=== PATIENT | male | born 1960 | race Caucasian/White ===

== ENCOUNTER → 2016-12-16 | Outpatient (CLI) | payer SELFPAY ==
[~2016-12-16] MED LIST: 'PARAFON FORTE500 M1 PO; ABILIFY5 MG PO; ASPIRIN ADULT L81 M2 PO; ATORVASTATIN CA40 M1 PO; BACTROBAN CREAM15 GM T; CARAFATE1 G1 PO; CLINDAMYCIN150 MG PO; FLUCONAZOLE100 MG PO; HIGH BP MED; LEVAQUIN750 M1 PO; LISINOPRIL40 MG PO; MAPAP325 MG PO; METFORMIN HCL1000 MG PO; MYCOLOG CREAM 115 GM T; NAPROSYN500 MG PO; PAROXETINE HCL40 MG PO; PERCOCET 325 MG1 TA2 PO; PROTONIX40 MG PO; REMERON15 M2 PO; SLOW MAG 110 MG64 MG PO; TRIGLYCERIDE MED; VALIUM10 MG PO; ZOLPIDEM TART10 MG PO; [UNRECOGNIZED DRUG - OTHER]
== END | disposition home or self-care (01) ==
LOC: RESCLI 02:31
DX: I10 Essential (primary) hypertension (principal); F51.01 Primary insomnia; F33.2 Major depressive disorder, recurrent severe without psychotic features; M54.31 Sciatica, right side; E11.65 Type 2 diabetes mellitus with hyperglycemia; E78.00 Pure hypercholesterolemia, unspecified; Z88.2 Allergy status to sulfonamides

== ENCOUNTER 2017-03-23 23:11 | Emergency (ER) | payer SELFPAY ==
[~2017-03-23] VITALS: Ht 187.9 cm; Wt 90.7 kg
[2017-03-24 04:14] LABS: BASO % 0.4 % (0.0-1.0); EOS # 0.2 10*3/uL (0.0-0.4); EOS % 2.6 % (1.0-4.0); HEMATOCRIT 41.6 % (42.0-52.0); IG # 0.2 10*3/uL (0.0-0.1); LYMPH # 2.3 10*3/uL (1.3-4.4); LYMPH % 32.9 % (27.0-41.0); MEAN CORPUSCULAR HGB 28.3 pg (27.0-31.0); MEAN CORPUSCULAR HGB CONC 33.7 g/dl (33.0-37.0); MEAN PLATELET VOLUME 9.5 fl (9.6-12.3); MONO # 0.7 10*3/uL (0.1-1.0); MONO % 9.8 % (3.0-9.0); NEUT # 3.6 10*3/uL (2.3-7.9); PLATELET COUNT AUTOMATED 253 10*3/uL (130-400); RED BLOOD COUNT 4.95 10*6/uL (4.50-5.90); RED CELL DISTRI WIDTH 14.3 % (0-14.5); WHITE BLOOD COUNT 6.9 10*3/uL (4.8-10.8)
[2017-03-24 04:32] LABS: ALKALINE PHOSPHATASE 104 U/L (45-117); BILIRUBIN, TOTAL 0.3 mg/dl (0.2-1.0); BUN 18 mg/dl (7-24); CARBON DIOXIDE 23 mmol/L (21-32); CHLORIDE 105 mmol/L (98-107); EST GLOM FILT AFRICAN AMERICAN > 60 ml/min; GLUCOSE 180 mg/dL (65-99); POTASSIUM 3.2 mmol/L (3.5-5.1); SGOT/AST 25 IU/L (3-35); SGPT/ALT 20 U/L (12-78); SODIUM 144 mmol/L (136-145); TOTAL PROTEIN 6.3 gm/dL (6.4-8.2)
== END 2017-03-24 11:08 | disposition home or self-care (01) ==
LOC: ED 23:11
PROVIDERS: Emergency Medicine Emergency Medical Services
DX: F10.120 Alcohol abuse with intoxication, uncomplicated (principal); S00.83XA Contusion of other part of head, initial encounter; E11.65 Type 2 diabetes mellitus with hyperglycemia; E78.00 Pure hypercholesterolemia, unspecified; K21.9 Gastro-esophageal reflux disease without esophagitis; F41.9 Anxiety disorder, unspecified; F32.9 Major depressive disorder, single episode, unspecified; Z88.1 Allergy status to other antibiotic agents; Z88.2 Allergy status to sulfonamides; Z79.899 Other long term (current) drug therapy; W18.30XA Fall on same level, unspecified, initial encounter; Y93.89 Activity, other specified; Y92.511 Restaurant or cafe as the place of occurrence of the external cause; Y99.9 Unspecified external cause status

== ENCOUNTER 2017-08-07 13:29 | Inpatient (IN) | payer SELFPAY ==
[~2017-08-07] VITALS: Ht 187.9 cm; Wt 91.4 kg
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
[2017-08-07 13:49] VITALS: BP 149/87
[2017-08-07 14:28] LABS: BASO % 0.5 % (0.0-1.0); EOS # 0.2 10*3/uL (0.0-0.4); HEMATOCRIT 45.4 % (42.0-52.0); LYMPH # 2.7 10*3/uL (1.3-4.4); LYMPH % 31.3 % (27.0-41.0); MEAN CORPUSCULAR HGB 28.7 pg (27.0-31.0); MEAN PLATELET VOLUME 10.1 fl (9.6-12.3); MONO # 0.5 10*3/uL (0.1-1.0); MONO % 6.2 % (3.0-9.0); NEUT # 5.1 10*3/uL (2.3-7.9); NEUT % 59.3 % (47.0-73.0); PLATELET COUNT AUTOMATED 303 10*3/uL (130-400); RED BLOOD COUNT 5.22 10*6/uL (4.50-5.90); RED CELL DISTRI WIDTH 13.8 % (0-14.5); WHITE BLOOD COUNT 8.5 10*3/uL (4.8-10.8)
[2017-08-07 14:40] LABS: ACT PARTIAL THROMBO TIME 26.2 SECONDS (20.8-31.5)
[2017-08-07 14:44] LABS: ALBUMIN 3.6 gm/dl (3.1-4.5); ALKALINE PHOSPHATASE 111 U/L (45-117); BUN 15 mg/dl (7-24); CHLORIDE 104 mmol/L (98-107); CKMB 1.1 ng/ml (0.5-3.6); CPK 44 U/L (39-308); CREATININE 1.04 mg/dL (0.70-1.30); LIPASE 229 U/L (73-393); MAGNESIUM 2.1 mg/dL (1.5-2.1); POTASSIUM 3.8 mmol/L (3.5-5.1); SGOT/AST 93 IU/L (3-35); SGPT/ALT 181 U/L (12-78); SODIUM 138 mmol/L (136-145); TOTAL PROTEIN 7.4 gm/dL (6.4-8.2)
[2017-08-07 14:46] LABS: TROPONIN I < 0.015 ng/ml (<0.045)
[2017-08-07 16:00] VITALS: BP 134/72
--- NOTE | 2017-08-07 16:22 | NUR ---
REPORT CALLED TO YESSICA PLASCENCIA AT THIS TIME.
[2017-08-07 16:24] VITALS: BP 124/70
[2017-08-07 16:30] VITALS: BP 124/70
--- NOTE | 2017-08-07 16:30 | NUR ---
A 57, admitted to , under the services of GLORIA Tracey DO with a diagnosis of INTRACTABLE BACK PAIN, UNSTEADY GAIT, NON-HEALING ULCER RIGHT FOOT, GENERAL WEAKNESS, ALTERED MENTAL STATUS. Chief complaint is BACK PAIN. Patient arrived via bed from ER. Monitor applied. Initial assessment completed. Vital signs taken and recorded. GLORIA TRACEY DO notified of admission to the unit. Orders received. See assessment for past medical history, medications and allergies. Patient and/or family oriented to unit. visitation policy reviewed. Clothing/patient valuable form completed. YESSICA ROBERTSON
--- NOTE | 2017-08-07 16:42 | NUR ---
PATIENT TAKEN TO FLOOR AT THSI TIME BY THIS NURSE AND NIGEL SCHWARTZ.
--- NOTE | 2017-08-07 17:00 | NUR ---
DR. DÍAZ NOTIFIED OF CRITICAL LACTIC ACID OF 2.3.
--- NOTE | 2017-08-07 19:22 | NUR ---
NOTIFIFED DR. SEYMOUR'S OFFICE AND DR. DWYER OF CONSULTS.
[2017-08-07 20:00] VITALS: BP 132/84
--- NOTE | 2017-08-07 20:20 | NUR ---
DR. WALLER NOTIFIED THAT PATIENT'S HOME MEDS WERE VEREFIED WITH PATIENT AND THAT MED REQ IS UP TO DATE.
[2017-08-07 22:49] LABS: BILIRUBIN NEGATIVE (NEGATIVE); BLOOD NEGATIVE (NEGATIVE); CLARITY CLEAR (CLEAR); COLOR YELLOW (YELLOW); GLUCOSE NEGATIVE (NEGATIVE); KETONE NEGATIVE (NEGATIVE); LEUKO ESTERASE NEGATIVE (NEGATIVE); NITRITE NEGATIVE (NEGATIVE); PH 5.5 (5.0-9.0); SPECIFIC GRAVITY 1.025 (1.005-1.030)
[2017-08-07 22:57] LABS: EPITHELIAL CELLS 0-2; RBC 0-2 rbc/hpf (0-2); WBC 0-2 wbc/hpf (0-5)
[2017-08-08] VITALS: BP 106/55
--- NOTE | 2017-08-08 00:40 | NUR ---
PATIENT MEDICATED WITH TORADOL IV AT 1802 AND 0006 FOR COMPLAINTS OF BACK PAIN AND ROZEREM AT 7 FOR COMPLAINTS OF INSOMNIA WITH EFFECTIVE RESULTS NOTED FOR ALL. RESTING IN BED WITH EYES CLOSED AT THIS TIME. NO SIGNS OR SYMPTOMS OF DISTRESS NOTED. CALL LIGHT IN REACH. WILL CONTINUE TO MONITOR.
--- NOTE | 2017-08-08 06:55 | NUR ---
PATIENT MEDICATED WITH TORADOL IV FOR COMPLAINTS OF BACK PAIN AT 0622 WITH EFFECTIVE RESULTS NOTED. RESTING IN BED WITH EYES CLOSED. WILL CONTINUE TO MONITOR. CALL LIGHT IN REACH.
[2017-08-08 07:06] LABS: BASO % 0.3 % (0.0-1.0); EOS # 0.2 10*3/uL (0.0-0.4); HEMATOCRIT 40.9 % (42.0-52.0); HEMOGLOBIN 13.2 g/dl (14.0-18.0); LYMPH # 2.3 10*3/uL (1.3-4.4); MEAN CELL VOLUME 88.9 fl (80.0-94.0); MEAN CORPUSCULAR HGB 28.7 pg (27.0-31.0); MEAN CORPUSCULAR HGB CONC 32.3 g/dl (33.0-37.0); MEAN PLATELET VOLUME 10.1 fl (9.6-12.3); MONO # 0.4 10*3/uL (0.1-1.0); MONO % 7.2 % (3.0-9.0); NEUT % 49.5 % (47.0-73.0); PLATELET COUNT AUTOMATED 261 10*3/uL (130-400); RED CELL DISTRI WIDTH 13.7 % (0-14.5)
[2017-08-08 07:35] LABS: CHLORIDE 107 mmol/L (98-107); POTASSIUM 4.2 mmol/L (3.5-5.1); SODIUM 140 mmol/L (136-145)
[2017-08-08 07:40] LABS: ACT PARTIAL THROMBO TIME 26.4 SECONDS (20.8-31.5); INTERNATIONAL NORM RATIO 0.9 (2.0-3.5)
[2017-08-08 07:46] LABS: ALBUMIN 3.1 gm/dl (3.1-4.5); ALKALINE PHOSPHATASE 109 U/L (45-117); BUN 20 mg/dl (7-24); CHOLESTEROL 129 mg/dL (<200); CREATININE 1.09 mg/dL (0.70-1.30); HDL CHOLESTEROL 32 mg/dl (40-60); LDL CHOLESTEROL 69 mg/dL (9-159); MAGNESIUM 2.3 mg/dL (1.5-2.1); PHOSPHOROUS 4.6 mg/dL (2.5-4.9); SGOT/AST 55 IU/L (3-35); SGPT/ALT 135 U/L (12-78); TOTAL PROTEIN 6.1 gm/dL (6.4-8.2); TRIGLYCERIDES 139 mg/dl (<150); VLDL CHOLESTEROL 28 mg/dL (6-40)
[2017-08-08 08:00] VITALS: BP 110/70; BP 87/49
--- NOTE | 2017-08-08 08:06 | NUR ---
Shift chart check completed.
[2017-08-08 08:08] LABS: VITAMIN D, 25-HYDROXY 20.9 ng/mL (30-100)
--- NOTE | 2017-08-08 09:22 | NUR ---
Patient sitting at side of the bed eating breakfast when this nurse went in to assess wounds. Patient asked that they not be unwrapped again since they were already unwrapped three different times for pictures and assessment by other nurse. This patient is a patient of the wound care center and was seen 08-05-17. Patient states that her legs "look better, even from Thursday" at wound care center. Patient states she has been faithfully going to [facility] two times a week for lymphedema management. Patient stated she wanted to keep the current wound care, she feels her wounds are improving well. Patient denied pain at time of assessment. Pedal pulses present. Edema noted to bilateral lower extremeties. This nurse encouraged patient to elevate legs to try to decress edema. Patient asked that Dr. Bailon be consulted.
--- NOTE | 2017-08-08 09:36 | NUR ---
SARAH PEDROERNIE [id number] Please refer to the physician's history and physical for past medical history, comorbid conditions, and allergies. Diagnosis: INTRACTABLE BACK PAIN UNSTEADY GAIT NON-HEALING Peter Score: 20,LOW OR NO RISK WOUND DESCRIPTIONS: Location of the wound: Right 2nd toe Type of wound: full thickness Thickness: Size: 1cm x 1cm x 0.1cm Tunneling: none Undermining: none Sinus Tract: none Presence of Exudate: Serous Amount: Light Color: Yellow, Brown Odor: None Periwound Skin Appearance: Erythema Wound edges: approximated Pain (associated with wound): Patient states he cannot feel anything on his feet How does patient state this happened? patient states he is unsure how this happened but has had the area for about 3 months If wound is on legs/feet or hands, capillary refill time, pulses, color temp, sensation: Capillary refill <3 seconds. Pedal pulses present. Right 2nd toe warm to touch Location of the wound: Posterior right ankle Type of wound: full thickness Size: 0.8cm x 0.5cm x 0.1cm Tunneling: none Undermining: none Sinus Tract: none Presence of Exudate: none Amount: None Color: Brown Odor: None Periwound Skin Appearance: Erythema Wound edges: approximated Pain (associated with wound): patient states he cannot feel anything in his feet How does patient state this happened? patient is unsure how this happened Patient is missing nail on left great toe. Patient states he lost the nail "weeks ago". Patient denies pain or discomfort to this area. No odor, drainage or erythema noted to this area. Surface the patient is resting on: Position Pro SKIN PREVENTION RECOMMENDATION: 1. Pressure redistribution support surface as appropriate 2. Elevate heels 3. Remove boots/TEDS every shift and reapply 4. Head of bed 30 degrees as tolerated 5. Assess nutrition and hydration 6. Manage moisture 7. Avoid the use of containment devices while in bed 8. Use absorptive products on surfaces limit layers of linens on bed 9. Turn and reposition every 1-2 hours in bed and every 1 hour in chair as tolerated 10. Weight shifts every 15 minutes while up in chair 11. Offloading with pillows or device to keep heels elevated off bed 12. Monitor skin at least every shift 13. Inspect under medical devices twice a day WOUND TREATMENT RECOMMENDATIONS: Right 2nd toe NSS, sureprep, therahar, drygauze. Bacvk of right ankle NSS, eliudprep, dami, optifoam gentle. Consult podiatry
--- NOTE | 2017-08-08 11:05 | NUR ---
[facility] CALLED ABOUT MED LIST - THEY SAID HE HAS NOT HAD ANY MEDICATIONS FILLED SINCE OCTOBER 2016. AGAIN ASKED THE PATIENT IF HE HAS PRESCRIPTIONS FILLED AT ANY OTHER PHARMACY AND HE REPLIED "NO". ASKED IF HE TAKES ANY MEDICATIONS DAILY AND HE AGAIN RESPONDED "NO"
--- NOTE | 2017-08-08 11:15 | NUR ---
DR TONEY NOTIFIED OF MED REC BEING UPDATED, NO MEDS FILLED SINCE OCTOBER 2016 & PATIENT SAYING HE DOESN'T TAKE ANY MEDICATIONS
--- NOTE | 2017-08-08 11:27 | NUR ---
PATIENT AGAIN ASKED WHEN HE WAS GOING TO THE BATHROOM FOR A URINE SAMPLE AND HE TOLD THE AIDE "YOU CAN SHOVE THE SAMPLE, YOU AREN'T GETTING IT."
[2017-08-08 12:00] VITALS: BP 128/54
--- NOTE | 2017-08-08 12:17 | NUR ---
TORADOL GIVEN FOR C/O BACK PAIN. PT NOW SAYS HE TAKES METFORMIN AND GETS IT FILLED AT [facility] - RN TOLD HIM THAT SHE CALLED [facility] & THAT IT HAD NOT BEEN FILLED SINCE OCT 2016. PT JUST LOOKED AT THE NURSE - PT DID GIVE URINE SAMPLE AFTER TELLING THE AIDE THAT SHE COULD SHOVE IT. WHEN ASKED WHY HE CHANGED HIS MIND HE SAID " I WAS JUST KIDDING" - RN SAID YES WE LIKE TO JOKE BUT THOSE WORDS ARE NOT JOKING. SAMPLE SENT TO LAB - DR DÍAZ IS ON THE FLOOR MAKING ROUNDS - CASE HAS BEEN DISCUSSED AND HE WAS TOLD THAT THE PATIENT WAS EXPECTD TO ASK FOR SOMETHING STRONGER
[2017-08-08 12:40] LABS: URINE AMPHETAMINES < 1000 (1000ng/ml); URINE BARBITURATES < 200 (200ng/ml); URINE BENZODIAZEPINES > 200 (200ng/ml); URINE CANNABINOIDS (THC) < 50 (50ng/ml); URINE COCAINE < 300 (300ng/ml); URINE METHADONE < 300 (300ng/ml); URINE OPIATES > 300 (300ng/ml)
[2017-08-08 12:44] LABS: URINE PHENCYCLIDINE < 25 (25ng/ml)
--- NOTE | 2017-08-08 14:01 | NUR ---
SLEEPING AGAIN ON HIS SIDE. EARLIER FLEXERTIL WAS EFFECTIVE FOR LEG CRAMPS
[2017-08-08 16:00] VITALS: BP 137/70
--- NOTE | 2017-08-08 16:30 | NUR ---
PT C/O LOWER BACK/RT FOOT PAIN. PT ADVISED THAT NO PRN'S ARE AVAILABLE AT THIS TIME. PT RESTING QUIETLY IN BED WITH EYES CLOSED.
[2017-08-08 20:00] VITALS: BP 129/72
--- NOTE | 2017-08-08 21:25 | NUR ---
PT RESTING QUIETLY IN BED WITH EYES CLOSED. NO FURHTER S/S OF DISTRESS NOTED.
--- NOTE | 2017-08-08 21:59 | NUR ---
OPTIFOAM REPLACED TO RIGHT POSTERIOR ANKLE D/T OLD DRSG WAS COMING OFF. PT TOLERATED DRSG CHANGE WELL.
[2017-08-09] VITALS: BP 132/56
--- NOTE | 2017-08-09 00:10 | NUR ---
REQUSETING PAIN MED. TOO EARLY FOR TOREDOL. FLEXERIL PO FOR C/O'S PAIN R LEG. HP LOCK INTACT. NO DISTRESS NOTED.
--- NOTE | 2017-08-09 00:39 | NUR ---
DRSG INTACT X;S 2 R GREAT TOE AND R ANKLE. NO VISIBLE DRNG NOTED.
--- NOTE | 2017-08-09 01:45 | NUR ---
0134 MEDICATED WITH TOREDOL IV FOR CONT C/O'S BACK PAIN AND PAIN R FOOT. WILL MONITOR.
--- NOTE | 2017-08-09 02:08 | NUR ---
EARLIER PAIN MED EFFECTIVE.
--- NOTE | 2017-08-09 04:04 | NUR ---
RESTING IN BED WITH EYES CLOSED. APPEARS TO BE SLEEPING.
--- NOTE | 2017-08-09 04:22 | NUR ---
0145 LATE ENTRY MILK OF MAGNESIA GIVEN PER REQUEST FOR CONSTIPATION.
--- NOTE | 2017-08-09 06:04 | NUR ---
SLEPT WELL THIS SHIFT. NO FURTHER C/O'S VOICED.
[2017-08-09 06:51] LABS: BASO % 0.5 % (0.0-1.0); EOS # 0.2 10*3/uL (0.0-0.4); EOS % 3.6 % (1.0-4.0); HEMATOCRIT 37.6 % (42.0-52.0); HEMOGLOBIN 12.6 g/dl (14.0-18.0); LYMPH # 2.4 10*3/uL (1.3-4.4); LYMPH % 39.6 % (27.0-41.0); MEAN CELL VOLUME 86.2 fl (80.0-94.0); MEAN CORPUSCULAR HGB 28.9 pg (27.0-31.0); MEAN CORPUSCULAR HGB CONC 33.5 g/dl (33.0-37.0); MEAN PLATELET VOLUME 9.9 fl (9.6-12.3); MONO # 0.4 10*3/uL (0.1-1.0); MONO % 6.7 % (3.0-9.0); NEUT % 49.1 % (47.0-73.0); PLATELET COUNT AUTOMATED 232 10*3/uL (130-400); RED BLOOD COUNT 4.36 10*6/uL (4.50-5.90); RED CELL DISTRI WIDTH 13.5 % (0-14.5); WHITE BLOOD COUNT 6.1 10*3/uL (4.8-10.8)
[2017-08-09 07:06] LABS: ALKALINE PHOSPHATASE 82 U/L (45-117); BUN 15 mg/dl (7-24); CHLORIDE 108 mmol/L (98-107); CREATININE 0.93 mg/dL (0.70-1.30); POTASSIUM 3.8 mmol/L (3.5-5.1); SGOT/AST 41 IU/L (3-35); SGPT/ALT 105 U/L (12-78); SODIUM 140 mmol/L (136-145); TOTAL PROTEIN 5.9 gm/dL (6.4-8.2)
--- NOTE | 2017-08-09 07:43 | NUR ---
Shift chart check completed.
[2017-08-09 08:00] VITALS: BP 134/74
--- NOTE | 2017-08-09 08:33 | NUR ---
PATIENT MEDICATED WITH IVP TORADOL FOR PAIN 8/10 IN HIS RIGHT HIP RADIATING DOWN HIS RIGHT LEG. PATIENT STATES MEDICATION DOES NOT WORK WELL.
--- NOTE | 2017-08-09 09:33 | NUR ---
PATIENT STATES MEDICATION NOT REALLY EFFECTIVE. DR TONEY AWARE THAT PATIENT ONLY HAS TORADOL ORDERED.
[2017-08-09 11:43] VITALS: BP 140/68
[2017-08-09] MEDS ORDERED: Zestril,Prinivi40 MG PO (12:33)
[2017-08-09] MEDS ORDERED: PANTOPRAZOLE SO40 MG PO (12:33)
[2017-08-09] MEDS ORDERED: CYCLOBENZAPRINE10 MG PO (12:33)
[2017-08-09] MEDS ORDERED: ROZEREM8 MG PO (12:33)
[2017-08-09] MEDS ORDERED: Vitamin D PO (12:33)
[2017-08-09] MEDS ORDERED: DULOXETINE HCL30 MG PO (12:33)
[2017-08-09] MEDS ORDERED: DULOXETINE HCL60 MG PO (12:33)
[2017-08-09] MEDS ORDERED: GABAPENTIN100 M2 PO (12:33)
[2017-08-09] MEDS ORDERED: Insulin Lispro, Reco SC (12:33)
[2017-08-09] MEDS ORDERED: NAPROXEN500 MG PO (12:35)
--- NOTE | 2017-08-09 14:00 | NUR ---
PATIENT REFUSED D/C PHOTOS OF WOUNDS. HE STATED THEY WERE JUST CHANGED THIS MORNING AND HIS HIP AND LEG ARE HURTING.
--- NOTE | 2017-08-09 14:10 | NUR ---
PATIENT MEDICATED WITH PO FLEXERILL AND IVP TORADOL FOR PAIN IN HIS RT HIP AND RADIATING DOWN HIS RIGHT LEG RATED 7/10
--- NOTE | 2017-08-09 14:27 | NUR ---
CALLED REPORT TO [facility] TO SUSY.
[2017-08-09 17:05] LABS: HEPATITIS B SURFACE AG Negative (Negative); HEPATITIS C VIRUS ANTIBODY <0.1 s/co (0.0-0.9)
== END 2017-08-09 14:22 | disposition home health service (06) | DRG 638 ==
LOC: ED 13:29 → EDHOLD 15:21 → 4E 15:44
PROVIDERS: Emergency Medicine; Family Medicine; Internal Medicine; ADMIT Internal Medicine
DX: E11.621 Type 2 diabetes mellitus with foot ulcer (principal); F33.2 Major depressive disorder, recurrent severe without psychotic features; L97.519 Non-pressure chronic ulcer of other part of right foot with unspecified severity; E11.40 Type 2 diabetes mellitus with diabetic neuropathy, unspecified; E11.65 Type 2 diabetes mellitus with hyperglycemia; M54.9 Dorsalgia, unspecified; R74.0 Nonspecific elevation of levels of transaminase and lactic acid dehydrogenase [LDH]; I10 Essential (primary) hypertension; E78.00 Pure hypercholesterolemia, unspecified; K21.9 Gastro-esophageal reflux disease without esophagitis; J30.2 Other seasonal allergic rhinitis; F41.1 Generalized anxiety disorder; E55.9 Vitamin D deficiency, unspecified; F34.1 Dysthymic disorder; E78.5 Hyperlipidemia, unspecified; Z88.2 Allergy status to sulfonamides; Z88.8 Allergy status to other drugs, medicaments and biological substances; Z87.01 Personal history of pneumonia (recurrent); Z72.89 Other problems related to lifestyle; Z82.49 Family history of ischemic heart disease and other diseases of the circulatory system; Z83.3 Family history of diabetes mellitus; Z79.2 Long term (current) use of antibiotics; Z79.84 Long term (current) use of oral hypoglycemic drugs; Z79.899 Other long term (current) drug therapy

== ENCOUNTER 2017-08-09 14:26 | Inpatient (IN) | payer SELFPAY ==
[~2017-08-09] VITALS: Ht 187.9 cm; Wt 93.3 kg
--- NOTE | ~2017-08-09 | CON ---
[place], [place] REPORT OF CONSULTATION NAME: [facility] SMITH [id number] UNIT #: [id number] ROOM: 312 DOCTOR: YARELIS JEAN ED.D (JUANIS) BIRTHDATE: [birth year] DOS: 08/17/2017 HISTORY OF PRESENT ILLNESS: The patient is a 57-year-old male referred by Dr. Dwyer for psychological evaluation. At the present time, this patient is on the [facility] at [facility]. He states he is and has one son, although he does not have much contact with his son. His mother is still living and is in her late 80s. He has several siblings; however, his one sister is suffering from liver cancer, and his 1 brother he has very little contact with at this time. This patient does not have a family physician, but his medical history is pertinent for hypertension, GERD, hyperlipidemia, diabetes mellitus, major depressive disorder, recurrent. His medications at this time include Paxil, Remeron, Abilify, Neurontin, Seroquel, and Zofran. He denies any significant substance abuse issues. This patient was awake, alert and oriented in all 3 spheres and denies any suicidal ideation or plan. He states he has been quite depressed, especially since his recent divorce in 02/2017. He does agree that he needs to follow up with outpatient psychotherapy and he will follow up in the office with me or with my colleague. DIAGNOSIS: Major depressive disorder, recurrent. RECOMMENDATIONS: The patient should continue medications as prescribed. The patient should follow up with outpatient psychotherapy once he is discharged. Thank you very much for this consult. YARELIS JEAN ED.D CM:CONSTR:REPORT OF CONSULTATION 1707 08/18/17 0049 interface BARB DWYER MD
--- NOTE | ~2017-08-09 | CON ---
[place], [place] REPORT OF CONSULTATION NAME: [facility]ITH [id number] UN[facility] #: [id number] ROOM: 312 DOCTOR: AIDA CALDERÓN DPM BIRTHDATE: [birth year] DOS: 08/10/2017 HISTORY OF PRESENT ILLNESS: This patient is seen today and is consulted for evaluation of a wound on his right foot. The patient states he has been diabetic for several years. He is unsure how his blood sugars do at this time. He states the wound has been there for a while. He was recently hospitalized and had a CT scan of the foot. He states he does experience some mild pain in the feet. He also states he experiences cramping in his legs when he walks that forces him to sit down. He gets pain in bed at night as well in his legs. PAST MEDICAL HISTORY: Positive for hypertension, gastroesophageal reflux disease, hyperlipidemia, diabetes, seasonal allergies as well as depression. ALLERGIES: BACTRIM AND SULFA. CURRENT MEDICATIONS: Include Seroquel, Zanaflex, Cymbalta, Protonix, Neurontin, Zostrix, Ativan, Flexeril. OBJECTIVE: Lower extremity physical examination, pedal pulses are decreased bilaterally. There is sparse hair growth noted on the feet. Skin temperature is cool at the toes. CFT is 2 seconds to all digits. Mild dependent edema is seen bilaterally. Negative Homans sign is seen. Sensation appears decreased but in the forefoot bilaterally. No paresthesias are seen. Muscle strength does appear full without any deficits. On the right posterior heel, right plantar forefoot, there is small area of discoloration, but no real open wounds in those areas. No signs of infection. He has an open wound noted at the dorsal PIPJ of the right second toe that measures about almost a cm in diameter. No bone is visible or palpable. There is no surrounding edema or erythema. No drainage or malodor. No signs of infection or abscess. He had a CT scan of his foot done, which showed no signs of osteomyelitis. IMPRESSION: Diabetes mellitus with diabetic ulcer, right second toe, possible peripheral arterial disease. PLAN: Consult is performed. Recommend Bactroban and dressing daily to the wound on his right foot to offload the area. I will order an arterial Doppler study to evaluate for underlying PAD. If it does show occlusion, recommend vascular consult but we will await to see what the test shows first. We will continue to follow while in the hospital. Thank you for the opportunity to take part in care of this patient. [place], [place] REPORT OF CONSULTATION NAME: ERNIE SMITH III UNIT #: [id number] ROOM: [facility] DOCTOR: AIDA CALDERÓN DPM BIRTHDATE: [birth year] AIDA CALDERÓN DPM CM:CONSTR:REPORT OF CONSULTATION 1154 08/10/17 1257 interface
--- NOTE | ~2017-08-09 | PR ---
[place], [place] PROGRESS NOTE NAME: ERNIE SMITH III [facility] #: [id number] UNIT #: [id number] ROOM: 312 DOCTOR: AIDA CALDERÓN DPM BIRTHDATE: [birth year] DOS: 08/17/2017 SUBJECTIVE: This patient is seen today for followup of an ulceration on his right second toe. He denies any pain in the toe at this time. OBJECTIVE: Neurovascular status is unchanged. There is some rubor noted to the toes at this time. The dorsal PIPJ of the right second toe shows ulceration which is decreased in size and depth. It appears to be smaller by about 50%. There is some erythema about the toe, but there is no infection noted. No purulent drainage or malodor. I believe the erythema is from dependent rubor and related to his circulation. The wound does look clean and is healing without any complication at this time. ASSESSMENT: Healing ulcer, right second toe. PLAN: Evaluation and management. Continue with wound care to the area with Bactroban and a light dressing. Continue to offload the area. The wound is improving nicely at this time. Reevaluate at a later date for continued followup. AIDA CALDERÓN DPM CM:ILENE [phone] AIDA CALDERÓN DPM 08/17/17 2346 interface
--- NOTE | ~2017-08-09 | PR ---
[place], [place] PROGRESS NOTE NAME: [facility]IE SMITH [id number] UN[facility] #: [id number] ROOM: 312 DOCTOR: BARB DWYER MD BIRTHDATE: [birth year] DOS: 08/18/2017 CHIEF COMPLAINT: "I actually slept better, I think I am feeling a little better." SUMMARY OF THE VISIT: The patient was interviewed as he sat down to eat breakfast. He engaged readily in conversation. He did report that he is feeling better and he slept better. He relates some of this to receiving Toradol injection last night, but also feels that the adjustments that I made with his medicines last evening also improved his overall stability. He convincingly denies any side effects. I did talk to him today about finalizing discharge plans and proceeding tomorrow with discharge and he nodded in approval. MENTAL STATUS: He is alert and oriented to person, place and time. Mood does seem to be trending towards euthymia. Affect is much more appropriate. There are no suicidal, homicidal, or self-injurious thoughts. There is no hypomania or chris. There are no psychotic symptoms. Memory is intact. PLAN: I will continue to titrate the Neurontin upward moving from 600 mg 3 times a day to 800 mg 3 times a day. I will simultaneously increase the Seroquel from 200 mg at bedtime to 300 mg at bedtime to maximize mood stability properties. We will continue to engage in individual and chung milieu activity with the ultimate plan to discharge home when psychiatrically stable. BARB DWYER MD CM:PNTRANS 0816 1137 BARB DWYER MD 08/18/17 1137 interface
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
--- NOTE | ~2017-08-09 | PR ---
[place], [place] PROGRESS NOTE [id number] #: [id number] ROOM: 312 DOCTOR: BARB DWYER MD BIRTHDATE: [birth year] DOS: 08/17/2017 CHIEF COMPLAINT: "I'm no better, I'm so depressed and in so much pain." SUMMARY OF THE VISIT: The patient was interviewed in the quiet room. He engaged readily in conversation and stated that he feels very much depressed and is overwhelmed by multiple stressors. He notes that he is still in a lot of pain and is upset with the hospitalist for not meeting those needs. He reports his sleep is disturbed with difficulty falling asleep, sleep continuity disturbance and internal grinder awakening. He also endorses anergia, anhedonia, hopeless, helpless feelings. He does state that he is willing to engage in counseling and would like to be able to start that here. He is willing to allow me to adjust his medicines accordingly. He denies any side effects from the medicines. MENTAL STATUS: He is alert and oriented. Mood does seem to be depressed with some anxious overtones. There are no symptoms of hypomania or chris. There are no overt auditory or visual hallucinations, delusions or paranoia. Short, intermediate, and long-term memory are intact. PLAN: I will increase his Neurontin to 600 mg 3 times a day while simultaneously increasing Seroquel from 100 to 200 mg at bedtime. This should aid sleep and should also augment the effectiveness of the antidepressant regimen. I will order him Zostrix high potency cream to be a non-medication treatment for his chronic pain. I will also have them consult Dr. Shamar Delgado, psychologist, to engage in counseling services now. We will continue to engage in individual and chung milieu activity with the ultimate plan to return home when psychiatrically stable. BARB DWYER MD CM:PNTRANS [id number] BARB DWYER MD 08/17/17 1234 interface
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
[~2017-08-09 14:26] MED LIST changes: +CYCLOBENZAPRINE10 MG PO; +DULOXETINE HCL30 MG PO; +DULOXETINE HCL60 MG PO; +GABAPENTIN100 M2 PO; +Insulin Lispro, Reco SC; +NAPROXEN500 MG PO; +PANTOPRAZOLE SO40 MG PO; +ROZEREM8 MG PO; +Vitamin D PO; +Zestril,Prinivi40 MG PO
[2017-08-09 14:46] VITALS: BP 147/86
--- NOTE | 2017-08-09 15:01 | NUR ---
DR. DÍAZ MADE AWARE OF CONSULT FOR MEDICAL MANAGMENT WHILE ON THE UNIT.
--- NOTE | 2017-08-09 15:35 | NUR ---
PT ADMITTED TO [facility] AT 1426 AFTER BEING TREATED ON THE MEDICAL UNIT IN THE HOSPITAL. PT SIGNED A VOLUNTARY CONSENT FORM FOR PSYCHIATRIC TREATMENT. HE REPORTEDLY CAME TO THE ER WITH COMPLAINTS OF PAIN IN HIS BACK, TEETH AND BILATERAL LEGS. IT WAS ALSO NOTED THAT PATIENT HAS HAD A CHANGE IN MENTAL STATUS. HE WAS TREATED ON THE MEDICAL UNIT TO RULE OUT ORGANIC CAUSES OF SIGNS AND SYMPTOMS. DR. DWYER ADMITTED PATIENT TO THE [facility] UNIT WITH A DIAGNOSIS OF MAJOR DEPRESSION RECURRENT, SEVERE AND GAVE VERBAL ORDERS VIA TELEPHONE FOR ADMISSION MEDICATIONS AND TREATMENTS. ON ARRIVAL, PT'S BEHAVIOR HAS BEEN CALM AND COOPERATIVE. PT HAS BEEN ORIENTED TO THE UNIT AND IS CURRENTLY WITH SUSY (RN) COMPLETING ADMISSION ASSESSMENT.
--- NOTE | 2017-08-09 18:41 | NUR ---
ERNIE SMITH III Leticia a 57 year old M admitted via wheel chair from the OTHER as a voluntary admission. Arrived on unit at 1450. ALLERGIES: SULFA, SEPTRA,TRIMETHOPRIM Vital signs are: [phone]/86. The client signed the following forms with stated understanding: Authorization For The Release of Medical Information, Clothing List, Consent to Voluntary Admission and Hospitalization, Consent and Release Forms/Receipt of Rights, Acknowledgement of Advance Directive Information, Behavioral Health Consent Form, and Informed Consent of Medications. Admitted under the services of Dr. REYMUNDO BRUSH,[facility]. A search was conducted and hazardous articles were removed. Client was oriented to the unit. SUSY CANSECO
--- NOTE | 2017-08-09 18:47 | NUR ---
MMSE completed upon admission.
--- NOTE | 2017-08-09 18:59 | NUR ---
Reddy is cooperative with admitting process. Dr. Lowry was notified of need to obtain a wound care consult on this date @ this time.
[2017-08-09 20:00] VITALS: BP 122/73
--- NOTE | 2017-08-09 20:25 | NUR ---
C/O RIGHT HIP PAINB 07/09. MEDICATED WITH NAPROSYN PER ORDERS. REFUSED 1:1. REFUSED SNACK. WILL MONITOR
--- NOTE | 2017-08-09 20:46 | NUR ---
DC'D IV HEPLOCK FROM RIGHT HAND. PRESSURE DRESSING APPLIED
--- NOTE | 2017-08-09 21:07 | NUR ---
MEDICATION EFFECTIVE. ASKED IF NAPROSYN EFFECTIVE FOR PAIN AND HE REPLIED "I DON'T REALLY KNOW I HAVE BEEN SLEEPING." WILL MONITOR
--- NOTE | 2017-08-10 00:06 | NUR ---
P#1--DEPRESSION RELATED TO HOME,LEGAL, FAMILY ISSUES I- TEACH NEW COPING TECHNIQUES, DISCUSS IMPORTANCE OF ABSTAINING FROM DRUGH, DISCUSS DEVELOPING HEALTHY OUTSIDE FRIENDS, ENCOURAGE TO VERBALIZE WORRIES AND NEEDS P- NO DRUG USE. IMPRPOVED MENTAL HEALTH. USE OF NEW COPING TECHNIQUES
--- NOTE | 2017-08-10 02:10 | NUR ---
FLEXERIL GIVEN FOR C/O BACK SPASMS
--- NOTE | 2017-08-10 04:05 | NUR ---
APPEARS FLEXERIL EFFECTIVE. EYES CLOSED RESP EASY NON LABORED. MOVES SELF IN BED WITHOUT DIFFICULTY. 24 HR chart check completed.
[2017-08-10 07:50] VITALS: BP 142/86
--- NOTE | 2017-08-10 08:48 | NUR ---
STAISH GARCIANP ON UNIT TO ASSESS PT.
--- NOTE | 2017-08-10 10:53 | NUR ---
SENT OVER FACE STEET TO ANKLE AND FOOT: VADIM UP TO SEE PATIENT: PT C/O PAIN IN LEFT HEEL
--- NOTE | 2017-08-10 12:39 | NUR ---
SARAH PEDROERNIE Kelly [id number] Please refer to the physician's history and physical for past medical history, comorbid conditions, and allergies. Diagnosis: MAJOR DEPRESSION SEVERE Peter Score: 21,LOW OR NO RISK WOUND DESCRIPTIONS: Location of the wound: left great toe Type of wound: stage 2 Thickness: Partial Size: 0.5cm x 0.5cm x 0.1cm Tunneling: none Undermining: none Sinus Tract: none Presence of Exudate: none Amount: None Color: Red Odor: None Periwound Skin Appearance: Normal Wound edges: approximated Pain (associated with wound): none at time of assessment How does patient state this happened? pt stated toenail fell off toe and these areas have been there for four months. Location of the wound: right heel Type of wound: stage 2 Thickness: Partial Size: 0.4cm x 0.3cm x 0.1cm Tunneling: none Undermining: none Sinus Tract: none Presence of Exudate: serosanguineous Amount: Light Color: Red Odor: None Periwound Skin Appearance: Normal Wound edges: approximated Pain (associated with wound): none at time of assessment How does patient state this happened? pt stated these areas have been there for four months. Location of the wound: right 2nd toe Type of wound: stage 4 Thickness: Full Size: 0.9cm x 0.9cm x 0.2cm Tunneling: none Undermining: none Sinus Tract: none Presence of Exudate: serosanguineous Amount: Light Color: Yellow Odor: None Periwound Skin Appearance: Normal Wound edges: approximated Pain (associated with wound): none at time of assessment How does patient state this happened? pt stated these areas have been there for four months. Location of the wound: right side of 2nd toe proximal Type of wound: unstageable Size: 0.3cm x 0.1cm x <0.1cm Tunneling: none Undermining: none Sinus Tract: none Presence of Exudate: none Amount: None Color: Brown Odor: None Periwound Skin Appearance: Normal Wound edges: closed Pain (associated with wound): none at time of assessment How does patient state this happened? pt stated these areas have been there for four months. Location of the wound: right side of left 2nd toe distal Type of wound: unstageable Size: 0.3cm x 0.1cm x <0.1cm Tunneling: none Undermining: none Sinus Tract: none Presence of Exudate: none Amount: None Color: Brown Odor: None Periwound Skin Appearance: Normal Wound edges: closed Pain (associated with wound): none at time of assessment How does patient state this happened? pt stated these areas have been there for four months. Patients Bilateral feet very cool to the touch. Pt pedal are very faint in bilateral feet more so in the right foot Surface the patient is resting on: Proform SKIN PREVENTION RECOMMENDATION: 1. Pressure redistribution support surface as appropriate 2. Elevate heels 3. Remove boots/TEDS every shift and reapply 4. Head of bed 30 degrees as tolerated 5. Assess nutrition and hydration 6. Manage moisture 7. Avoid the use of containment devices while in bed 8. Use absorptive products on surfaces limit layers of linens on bed 9. Turn and reposition every 1-2 hours in bed and every 1 hour in chair as tolerated 10. Weight shifts every 15 minutes while up in chair 11. Offloading with pillows or device to keep heels elevated off bed 12. Monitor skin at least every shift 13. Inspect under medical devices twice a day WOUND TREATMENT RECOMMENDATIONS: Consult podiatry.
--- NOTE | 2017-08-10 13:15 | NUR ---
THIS NURSE TALKED TO THE PATIENT AND COUSIN : DISCUSSION INCLUDED MEDICATIONS, SIDE AND EFFECTS AND INDICATINOS, ALSO WENT OVER LABS, AND TEST THAT WERE PREFOMRED. PT WAS ENCOURAGED TO PARICIPATE IN GROUPS, THIS NURSE WENT OVER ALL THE RULES OF THE UNIT. WENT OVER THE GROUP AND ACTIVITIES THAT ARE RECOMMENDED TO PARTICAPTE IN. THE PT WANTS INFORMATION ON APPLYING FOR INSURANCE AND FOODSTAMPS. THE FAMILY WANTS TO APPLY FOR DISABILITY.
--- NOTE | 2017-08-10 13:20 | NUR ---
Exercise/Trivia Sujey did attend group and did participate. Group started out as Execise/Trivia but soon became a discussion. Noryt stated he has no leisure interest or ways to eleviate stress. Patient also states hes in constant pain. AT asked patient if he had any leisure interest before his life became all work. Patient stated no the only interest he had was playing chess. AT tried to discuss ways to deal with stress and anxiety. Noryt was very negative and questioned everything AT suggested. Sujey also stated he saw no reason to have a group and he wants his "tablet" back so he could listen to the bible. AT attempted to explain the reason sometings are not aloud but PT didnt agree with the explaination. AT also stated she would find a bible for patient to read but patient refused
--- NOTE | 2017-08-10 16:46 | NUR ---
PT EXCORTED BY CHUCKAR BY SECURITY AND JORGE TO RADIOLOGY FOR UNLTRASOUND OF LOWER EXTREMITIES
--- NOTE | 2017-08-10 17:07 | NUR ---
THIS NURSE WAS PASSING A TRAY TO ERNIE, ERNIE WAS STATING HE IS IN #10 PAIN IN HIS LOWER BACK AND NEEDED TO LAY ON THE FLOOR IN THE DINING ROOM TO STRETCH HIS BODY OUT. THIS NURSE SUGGESTED THAT IT WASN'T THE MOST APPORPORATE PLACE TO LAY DOWN AND LETS GO TO HIS ROOM, PT REFUSED WANTED TO LAY THERE FOR A MINUTE TO JUST STRETCH. PT GOT HIMSELF UP OFF THE FLOOR AND SAT DOWN TO EAT DINNER.
--- NOTE | 2017-08-10 17:10 | NUR ---
ALERT TO PERSON, PLACE, TIME , POOR TO SITUATION, PT IS MED SEEKING, ATTENTION SEEKING, POOR JUDGEMENT, C/O BACK PAIN #10, PT OFFERED TYLENOL PT REFUSED. PT ASKING FOR A DECONGESTANT, DR BALDWIN NASAL SPRAY, PT REFUSED, DENIES SI/HI, DENIES ALL PSYCHOSIS, PT IS DEPRESSED, ANXIOUS. EATING AND DRINKING ADEQUATELY. BS HAVE BEEN STABLE.
--- NOTE | 2017-08-10 17:14 | NUR ---
24 HR chart check completed.
[2017-08-10 19:04] VITALS: BP 109/65
--- NOTE | 2017-08-10 21:32 | NUR ---
COMPLAINS OF CONSTIPATION FOR 2 DAYS. MOM PROVIDED AT CLIENTS REQUEST
--- NOTE | 2017-08-10 21:49 | NUR ---
COMPLAINS OF NASAL STUFFINESS. REFUSES SALINE SPRAY ORDERED. STATES "I WANT A REAL DECONGESTANT". TOLD HIM TO TALK TO MEDICAL DOCTORS IN THE MORNING. P#1--DEPRESSION I- CONTINUE TO TEACH COPING TECHNIQUES. CONTINUE GETTING HIM INVOLVED IN SOCIAL INTERACTION. MEDICATION COMPLIANCE AND DECREASE NEED FOR NARCOTICS. P- DECREASED DEPRESSION. LOWER IS NEED FOR NARCOTICS
--- NOTE | 2017-08-11 06:14 | NUR ---
NO RESULTS FROM MOM AT THIS TIME. WILL MONITOR. SLEPT WELL ALL SHIFT. AWAKENED EARLIER FOR LAB WORK BUT WENT BACK TO SLEEP. MOVES SELF AROUND IN BED. 24 HR chart check completed.
[2017-08-11 07:50] VITALS: BP 121/60
--- NOTE | 2017-08-11 08:10 | NUR ---
Coffee Social/Cards Trae did attend group as well asparticipated on 08/10/2017. 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 Patient tends to want to dominate group with his "ideas" of how to respond or to do things. Patient is redirected several times. This patient wanted to play cards but his choice was poker which this staff felt was not appropriate for group. Staff attempted to discuss ways to cope with stress and anxiety but this patient tends to question all attempts
--- NOTE | 2017-08-11 09:49 | NUR ---
PATIENT COMPLAINED OF LOWER BACK PAIN, RATING 8/10. PRN NAPRASIN 500MG PO GIVE AT THIS TIME.
--- NOTE | 2017-08-11 10:05 | NUR ---
PATIENT COMPLAINED OF CREAM ON BACK BURNING SKIN, CLEANSED SKIN WITH SOAP AND WATER, SATISH ARCOS PRODUCE INSPECTOR ON UNIT TO SEE WOUNDS ON FEET AND UPDATED ON SKIN BURNING. NEW ORDER TO D/C ZOSTRIX CREAM. DR. CALDERÓN'S OFFICE NOTIFIED TO CLARIFY TREATMENT ORDER ON LEFT FOOT. AWAITING RETURN CALL AT THIS TIME.
--- NOTE | 2017-08-11 10:50 | NUR ---
DR CALDERÓN RETURNED CALL BACTROBAN TO BOTH AREAS ON RIGHT FOOT (2ND DIGIT AND POSTERIOR HEEL) CLEANSE WITH NORMAL SALINE, APPLY BACTROBAN, DRY DRESSING AND CHANGE Q DAY.
--- NOTE | 2017-08-11 11:05 | NUR ---
NO FURTHER COMPLAINT OF PAIN AT THIS TIME, PRN NAPROSYN EFFECTIVE.
--- NOTE | 2017-08-11 11:46 | NUR ---
PHYSICAL THERAPY Physical Therapy Evaluation completed this date. See eval form for complete details. Will begin PT intervention to address impairments of R LE pain, muscle weakness, and difficulty ambulating as able during stay[place] [id number] based on chart review and PT eval. Jennifer Puentes, PT
--- NOTE | 2017-08-11 13:13 | NUR ---
Trivia/Positive Traits Patient did attend group this morning and did participate. We discussed positive traits and play a game of the ABCs of positive traits that seem to stump this patient as well as the other patients. We also discussed what positive traits we felt was "on the fence" such as bashful or calm. We also discussed what positive traits this patient needed to improve
--- NOTE | 2017-08-11 15:43 | NUR ---
Grief/Coping Patient did attend group this afternoon as well as participate. Patient participated during the coping portion but when another patient started opening up about his grief this patient respected that and let him speak. This patient has not truly talked about his needs to cope with stress or anxiety. Patient just leaves it at hes stressed
--- NOTE | 2017-08-11 16:39 | NUR ---
PATIENT HAS HAD 2-120OZ OF PRUNE JUICE THIS AFTERNOON, ABDOMEN ASSESS, BOWEL SOUND ACTIVE X 4 WITH NO DISTENTION AT THIS TIME. WILL CONTINUE TO MONITOR, NO COMPLAINTS AT THIS TIME.
--- NOTE | 2017-08-11 17:54 | NUR ---
PATIENT IS ALERT AND ORIENT TO PERSON, PLACE, TIME AND SITUATION, ABLE TO VOICE NEEDS. RESPIRATIONS ARE EASY, NON-LABORED. DENIES ANY HALLUCINATIONS, DELUSION, HI/SI. NO PAIN AT THIS TIME. MOOD IS DEPRESSED. PATIENT IS INDEPENDENT WITH ACTIVITIES OF DAILY LIVING. CONTINENT OF BOWEL AND BLADDER. MEAL INTAKES ARE GOOD WITH ADEQUATE FLUIDS. PATIENT IS ABULATORY WITH STEADY GAIT. PATINENT SHOWERED AND SHAVED TODAY WITH ASSISTANCE BY NURSE SHAVING. PATINENT IS BECOMING MORE ORGANIZED AND GOAL DIRECTED TODAY. INTERACTIVE WITH STAFF AND OTHER PATIENTS. PARTICIPATED IN GROUPS TODAY. Q 15 MINUTE CHECKS MAINTAINED.
--- NOTE | 2017-08-11 18:00 | NUR ---
ANA RECEIVED VM FROM KLAUS HERNANDEZ. JORDAN GAVE PASSWORD. ANA RETURNED CALL AND LEFT VM THAT PENDING DISCAHRGE IS FOR 08/14 WITH FOLLOW UP WITH [facility] - DR. CACERES. ANA WILL TRY TO CALL AGAIN ON THURSDAY.
[2017-08-11 20:00] VITALS: BP 117/74
--- NOTE | 2017-08-11 23:08 | NUR ---
PATIENT IN DINING ROOM INTERACTING WITH PEERS DURING HS MEDICATION PASS. DURING 1:1 PATIENT NOTED TO BE IRRITABLE UPON APPROACH, STATED TO THIS NURSE VARIOUS COMPLAINTS AND DEMANDS PRETAINING TO " WHY IS SNACK TAKING SO LONG TO GET HERE", "WHY CANT I ORDER PIZZA FOR THE WHOLE UNIT", "WHY ARE MY CERTAIN MEDICATIONS ORDERED FOR CERTAIN TIMES, I TOLD THEM ABOUT IT ALREADY, HOW HARD IS IT", "I NEED A NEW GOWN AND PANTS BECAUSE THE ICE PACK THEY GAVE ME MADE ME ALL WET, YOU SEE THIS". PATIENT PROVIDED EDUCATION ON MEDICATION AND RULES OF UNIT, ALSO PROVIDED WITH ADDITIONAL GOWNS. ALSO NOTED TO STATE INAPPROPRIATE COMMENTS TOWARDS OTHER STAFF MEMBER IN REGARDS OF FLIRTING. PATIENT EASILY REDIRECTED. DENIES FEELINGS OF DEPRESSION AND SUICIDAL IDEATIONS AT THIS TIME, PATIENT INFORMED THAT IF THOUGHTS ARISE TO NOTIFY STAFF. PATIENT CONTRACTED FOR SAFETY. MEDICATION COMPLIANT AFTER REVIEW. NO PHYSICAL COMPLAINTS VOICED. PATIENT CURRENTLY IN BED WITH EYES CLOSED. RESPIRATIONS EASY AND REGULAR. NO SIGNS OR SYMPTOMS OF DISTRESS NOTED.
--- NOTE | 2017-08-12 04:45 | NUR ---
24 HOUR CHART CHECK COMPLETED.
--- NOTE | 2017-08-12 05:38 | NUR ---
PATIENT OBSERVED ON Q 15 MIN CHECKS TO HAVE SLEPT THROUGHOUT THE NIGHT WITH NO AWAKENINGS OR SIGNS AND SYMPTOMS OF DISTRESS NOTED.
--- NOTE | 2017-08-12 08:45 | NUR ---
THIS NURSE WALKED INTO DINING ROOM AND OBSERVED PT TO BE LAYING ON THE FLOOR ON HIS LEFT SIDE. WHEN APPROACHED PT STATED " DON'T THINK I'M LAYING HERE B/C I WANT TO, I NEED TO STRECTH OUT BECAUSE I'M CRAMPING UP BUT I DON'T WANT TO LEAVE HERE SO I LAID DOWN ON THE FLOOR."
[2017-08-12 08:49] VITALS: BP 103/61
--- NOTE | 2017-08-12 09:52 | NUR ---
PHYSICAL THERAPY Mr Dimas seen this AM 1:1 for his therapy session. Pt was supine in bed and talked into his treatment. Transfer supine/sit, sitting balance supervision X 1. Sit/stand and up on wheeled walker for standing balance, MOD A X 1. Then gait total 140' X 1, with cueing for gait, walker, stop/stand safety and balance having no LOB with this gait. After sitting rest act Ex to bilateral LE of marching, LAQ's, and ankle pumps X 15 reps each with cueing for each Ex. Pt up in the day room for his breakfast, treatment time 25 min. LELO JOHNS BACKING IN MACHINE TENDER.
--- NOTE | 2017-08-12 11:23 | NUR ---
Reminiscing/Feelings Patient did attend group this morning as well as participate. Patient reminisced of different areas of were he grow up and how he felt today, how he felt about being here, and i also gave Patients a couple senerios and asked how they would respond to them. Patient responded appropriatly in positive forms
--- NOTE | 2017-08-12 12:14 | NUR ---
Patient laying on dayroom floor. Nurse reports he has low back pain and prefers to lay on floor. OTR will attempt eval at a later time. Nereida Lucero OTR/Yolanda
--- NOTE | 2017-08-12 12:36 | NUR ---
Ken has referenced several times that when his stay is over him and i are going on a road trip to various places that have been talked about in groups such as [facility]. A couple of times patient has referenced another patient going with us. I have been very kind but firm stating that was not going to happen and redirecting patient. Patient continues to state this. I have made the Director aware of the situation and have discussed a few options to deter Patient from continually referencing this
--- NOTE | 2017-08-12 15:54 | NUR ---
PT ALERT TO PERSON,PLACE,TIME AND SITUATION. PT MED COMPLIANT WITHOUT DIFFICUTLY. PT ISOALTIVE TO ROOM AT TIMES, PT ENCOURAGED TO PARTICIPATE IN GROUPS/ACTIVITIES. NO HOMICIDAL/SUICIDAL THOUGHTS NOTED. NO HALLUCINATIONS OR DELUSIONS NOTED. PT CAN BE DEMANDING AT TIMES. PT CONTINENT OF BOWEL AND BLADDER. PT AMBULATORY THROUGHOUT UNIT, GAIT STEADY. PT OBSERVED TO BE LAYING ON THE FLLOR IN THE DINING AREA MULTIPLE TIMES THROUGHOUT THE SHIFT, D/T "NEEDING TO STRECTH B/C I'M CRAMPED". PLAN IS TO ENCOURAGE PT TO PARTICIPATE IN GROUPS AND ACTIVITIES,MONITOR PT BEHAVIORS ON Q15 MIN CHECKS, ENCOURAGE PT TO VOICE ANY SUICIDAL THOUGHTS.
--- NOTE | 2017-08-12 17:27 | NUR ---
ANA SPOKE WITH MARY Garcia ABOUT DISCHARGE PLANNING. MARIA M IS NOT AVAILBALE ON THURSDAY TO PRICING DIRECTOR PT D/T TAKING AN AUNT TO [place] DR. THORNTON. JORDAN CAN PRICING DIRECTOR THURSDAY AT 11AM IF HE IS DISCAHRGE THAT DAY.
[2017-08-12 20:00] VITALS: BP 100/60
--- NOTE | 2017-08-12 20:26 | NUR ---
DR. LAWRENCE ON UNIT AT THIS TIME. UPDATE PROVIDED WITH PATIENTS ULTRA SOUND RESULTS FROM 08/10/17. RECIEVED ORDERS FROM DR. LAWRENCE TO PLACE BACITRACIN ON RIGHT SECOND TOP OF TOE AND APPLY A BANDAID. NO OTHER ORDERS RECIEVED AT THIS TIME.
--- NOTE | 2017-08-13 07:04 | NUR ---
PATIENT OBSERVED ON Q 15 MIN CHECKS TO HAVE SLEPT THROUGHOUT THE NIGHT WITH NO AWAKENINGS OR SIGNS OR SYMPTOMS OF DISTRESS NOTED. MEDICATION COMPLIANT WITHOUT DIFFICULTY THIS SHIFT. NO PHYSICAL COMPLAINTS VOICED. REFER TO FLOWSHEET FOR SPECIFIC MONITORING.
--- NOTE | 2017-08-13 07:18 | NUR ---
24 HOUR CHART CHECK COMPLETED.
--- NOTE | 2017-08-13 07:42 | NUR ---
Feelings:dealing with negative feelings Patient did attend group on 08/12/17 as well as participate. Patient lies on floor during group stating it helps his back to lay down and he wants to be part of group. Patient joined in talking only of a feeling of terrified of hieghts and would never face that feeling. Patient doesnt talk of other feelings but listens when discussing how to deal with feelings. Patient does interject for other patients about their various needs. In formed patient that the other patients would need to discuss that themselves with the nurses,social services counselor etc. Patient redirected
[2017-08-13 09:14] VITALS: BP 116/72
[2017-08-13 10:08] LABS: NEURONTIN (GABAPENTIN) 4.6 ug/mL (4.0-16.0)
--- NOTE | 2017-08-13 10:19 | NUR ---
WALKER PROVIDED TO PT AND REMINDED TO USE WHEN STANDING/WALKING. PT VERBALIZED UNDERSTANDING. FALL PRECAUTIONS REVIEWED WITH PT. REMINDED TO ASK FOR ASSISTANCE NEEDED.
--- NOTE | 2017-08-13 10:43 | NUR ---
PHYSICAL THERAPY Therapy in to see Reddy this AM and he was in his bathroom and said not now to come back later. Stopped back 1 1/2 hour later and Reddy was in the day room laying on the floor due to back pain he said. Reddy said that he walked up to the day room and thats all, just going to lay here while group was on. LELO JOHNS HIGH SCHOOL ASSISTANT PRINCIPAL.
--- NOTE | 2017-08-13 11:08 | NUR ---
PT IS ALERT AND ORIENTED TO PERSON, PLACE, TIME AND SITUATION. MEMORY APPEARS INTACT. RESPIRATIONS EASY ON ROOM AIR. MOOD IS DEPRESSED, STABLE, AFFECT FLAT. SPEECH IS WNL AND COHERENT, ABLE TO MAKE NEEDS KNOWN WITHOUT DIFFICULTY. PT DENIES HALLUCINATIONS, NO RESPONSE TO INTERNAL STIMULI NOTED. PT DENIES SI/HI. NO PARANOIA/DELUSIONS NOTED. ISOLATIVE TO ROOM AT TIMES. AMBULATORY, GAIT STEADY, REMINDED TO USE WALKER RECOMMENDED BY THERAPY. INDEPENDENT WITH ADLS, DISPLAYS GOOD APPETITE WITH ADEQUATE FLUID INTAKE. PT CONTINUES TO LAY ON FLOOR IN DINING ROOM ON AND OFF THROUGHOUT THE SHIFT STATING "IT HELPS MY BACK. I NEED TO STRETCH OUT THE CRAMPS." MEDICATION COMPLIANT WITHOUT DIFFICULTY. NO DISTRESS NOTED. Q15 MIN SAFETY CHECKS MAINTAINED, REFER TO [facility] FLOWSHEET FOR SPECIFIC MONITORING.
--- NOTE | 2017-08-13 13:00 | NUR ---
Reminiscing Patient did attend group this morning as well as participated. Patient laid down on the floor again due to it helping his back and patient not wanting to miss group. Patient made conversation with the new patient encouraging her to talk of her memories and asking her questions.
--- NOTE | 2017-08-13 13:11 | NUR ---
Patient was observed this date for Occupational Therapy screen. Patient was in dayroom with wh walker nearby engaged in group programming. Jony reports that he is independent in all self care and ambulation on the unit. He is encouraged to use wh walker when walking. He will frequently lay on the floor to relieve his back pain. He has not trouble rising from the floor afterwards. At this time no further OT appears needed. Thank you for this referral. Nereida Lucero OTR/l
--- NOTE | 2017-08-13 16:57 | NUR ---
PT OFF UNIT AT THIS TIME, ESCORTED BY [facility] STAFF VIA WHEELCHAIR TO XRAY.
--- NOTE | 2017-08-13 17:07 | NUR ---
PT RETURNED FROM XRAY WITHOUT INCIDENT.
--- NOTE | 2017-08-13 17:09 | NUR ---
TREATMENT TEAM WAS HELD TO DISCUSS DISCHARGE PLANS WITH THE FOLLOWING: DR. DWYER, RNs, SW, AND DOCUMENTATION SPEC. PENDING DISCHARGE FOR Thursday.
--- NOTE | 2017-08-13 18:14 | NUR ---
PT REFUSES TO USE WALKER T/O THE SHIFT DESPITE MULTIPLE REMINDERS BY STAFF.
--- NOTE | 2017-08-13 18:16 | NUR ---
SHIFT CHART CHECK COMPLETED.
--- NOTE | 2017-08-13 18:37 | NUR ---
WOUND TX PROVIDED TO RIGHT 2ND TOE AND RIGHT HEEL, PT REFUSED ASSESSMENT AND TX TO LEFT FOOT STATED "NO, IT'S OKAY, THERES NOTHING THERE."
[2017-08-13 20:45] VITALS: BP 115/74
--- NOTE | 2017-08-13 22:18 | NUR ---
B- ANXIETY R/T LACK OF SLEEP I- 1:1 WITH STAFF TO DISCUSS TREATMENT AND COPING SKILLS TO HELP WITH ANXIETY AND NONPHARMACOLOGICAL WAYS TO HELP WITH SLEEP. R- PT WAS RECEPTIVE TO DISCUSSION AND WAS ABLE TO NAME TWO COPING SKILLS TO HELP WITH ANXIETY AND 2 NONPHARMACOLOGICAL WAYS TO HELP WITH SLEEPING. P- CONTINUE TO USE COPING SKILLS FOR ANXIETY AND LEARN/USE MORE NONPHARMACOLOGICAL WAYS TO HELP WITH SLEEPING.
--- NOTE | 2017-08-14 04:40 | NUR ---
24 HR chart check completed.
--- NOTE | 2017-08-14 06:46 | NUR ---
pt slept greater than 8 hours. no s/s of distress noted. no c/o pain. q15 minute safety checks maintained. see [facility] flowsheet for specific monitoring.
--- NOTE | 2017-08-14 07:41 | NUR ---
Painting/Socializing Patient did attend group as well asparticipated. Patient also laid on the floor periodically then would resume painting and socializing. Patient continued to make references to "our Dating" or "going on a road trip" to which i continued to discourage patient from speaking this way and redirecting him. I dont know if patient is serious or if patient does this to be controling. Patient does want things his way and continues to try and dominate group at types. I will continue to discourage patient and to make it know again this is against policy as well as inappropriate
[2017-08-14 07:54] VITALS: BP 98/63
--- NOTE | 2017-08-14 08:47 | NUR ---
PHYSICAL THERAPY Reddy seen this AM 1:1 for his physical therapy treatment. Pt having C/O back pain and bilateral leg pain that no one is doing anything about. Gait 140' X 1, CG X 1, down to the day room and using the blake hand rail at times, no LOB. Sitting rest, Followed by another gait with wheeled walker. Sit/stand CG X 1, gait total 110' X 1, no LOB little verbal cueing for gait, balance walker safety and turns. Pt back up in the day room for his breakfast, nurse present. LELO JOHNS DUCT MAKER.
--- NOTE | 2017-08-14 11:13 | NUR ---
SEYMOUR ARCOS HERE TO SEE PATIENT.
--- NOTE | 2017-08-14 11:36 | NUR ---
Painting,Decorating/Socializing We started this project yesterday afternoon. Patient did attend group as well as participate. Patient again laid on the floor for a while to help his back. Patient intervenes when nurse is passing another patient their medicine, telling patient to take her medicine or or asking another patient where they are going or what they are doing. Patient does not appear "helpful" to me but controling. Patient asked if i was serious about not going on a date with him. I stated yes very serious i am not. Patient stated when he was released he would send me haskins,candy etc and eventually i would agree. I assured patient i absolutly would not agree that is was inappropriate. Patient states he would be out so why would it be inappropriate. Explained it is also against hospital policy
--- NOTE | 2017-08-14 13:16 | NUR ---
PT REPORTS THAT TYLENOL WAS NOT EFFECTIVE IN RELIEVING HIS PAIN. PT REPORTS THAT PAIN IS A 10/10 AT THIS TIME. AWAITING MEDICATIONS FROM [facility] FOR THE TREATMENT OF HIS PAIN IN HIS RIGHT HIP. PT IS LAYING IN BED RESTING QUIETLY AT THIS TIME.
--- NOTE | 2017-08-14 15:54 | NUR ---
Finishing [place] Patient did not attend group today. Patient was asleep when i went to his room. I knocked and called out the patients name from outside of the room. Patient woke up and stated he was not coming to group he was too tired. Later patient stated he was given something for his back that made him tired
[2017-08-14 20:00] VITALS: BP 113/67
--- NOTE | 2017-08-15 06:21 | NUR ---
PT SLEPT GREATER THAN 7 HOURS THIS SHIFT. NO S/S OF DISTRESS NOTED. NO C/O PAIN. Q15 MINUTE SAFETY CHECKS MAINTAINED. SEE U FLOWSHEET FOR SPECIFIC MONITORING. DURING MED PASS, PT REQUESTED WE GIVE HIS MEDICATION TO ANOTHER PT THAT WAS ESCALATING OTHER PTS. EXPLAINED THE PREOCEDURES OF THE UNIT TO THE PT AND THE PT STATED HE WAS JUST JOKING.
[2017-08-15 07:55] VITALS: BP 133/84
--- NOTE | 2017-08-15 11:49 | NUR ---
24 HR chart check completed.
--- NOTE | 2017-08-15 18:05 | NUR ---
PT KEEPS REQUESTING TRAMADOL IM.
[2017-08-15 20:19] VITALS: BP 120/70
--- NOTE | 2017-08-16 05:58 | NUR ---
PT SLEPT APPROXIMATELY 9 HOURS THIS SHIFT. NO S/S OF DISTRESS NOTED. NO C/O PAIN. Q15 MINUTE SAFETY CHECKS MAINTAINED. PT REMAINS MILDLY DEPRESSED THIS SHIFT. SOON AFTER SNACK PT RETIRED TO HIS ROOM AND DID NOT SOCIALIZE THIS EVENING. MEDICATION COMPLIANT SEE [facility] FLOWSHEET FOR SPECIFIC MONITORING.
--- NOTE | 2017-08-16 06:13 | NUR ---
24 HR chart check completed.
[2017-08-16 08:03] VITALS: BP 139/73
--- NOTE | 2017-08-16 13:09 | NUR ---
PT REPORTS PAIN 8/10 IN BACK. ZANAFLEX AND GABAPENTIN GIVEN ORDERED.
--- NOTE | 2017-08-16 18:49 | NUR ---
PT ALERT AND ORIENTED X4. BEHAVIOR HAS BEEN CALM AND COOPERATIVE. PT'S LESS DEMANDING BUT CONTINUES TO HAVE POOR BOUNDARIES AT TIMES. PT CONTINUES TO REPORT CHRONIC PAIN. HE VERBALIZED UNDERSTANDING OF EACH MEDICATION. HIS APPETITE IS GOOD. PT REFUSES TO FOLLOW A DIABETIC DIET. PT REQUESTED GRAVY AND PRUNE JUICE AND AT TIMES HAS BEEN SEEN ASKING HIS PEERS FOR THEIR FOOD. PT FREQUENTLY REMINDED AND EDUCATED ON THE IMPORTANCE OF DIABETIC DIET. PT SHOWS LITTLE INTEREST IN DIABETIC DIET.
[2017-08-16 20:46] VITALS: BP 118/72
--- NOTE | 2017-08-16 22:48 | NUR ---
PROBLEM 1-- DEPRESSION I- EXPLAIN ALL MEDICATIONS AND THEIR USES AND SIDE EFFECTS. TEACH NEW COPING TECHNIQUES TO SUBSTITUTE FOR DRUGS. ENCOURAGE INTERACTION VS ISOLATION P- NO ABUSING OF DRUGS, INTERACTIVE IN OUTSIDE GROUPS. MEDICATION COMPLIANCE
--- NOTE | 2017-08-17 00:19 | NUR ---
APPEARS TYLENOL EFFECTIVE FOR PAIN
--- NOTE | 2017-08-17 05:00 | NUR ---
24 HR chart check completed.
[2017-08-17 08:05] VITALS: BP 122/67
--- NOTE | 2017-08-17 10:19 | NUR ---
PHYSICAL THERAPY Reddy seen this AM and was supine in bed and said later not now. LELO JOHNS CLERICAL SUPERVISOR.
--- NOTE | 2017-08-17 10:20 | NUR ---
PHYSICAL THERAPY All transfers were supervision x 1. Gait 140' X 1, CG and using the blake hand rail at times no LOB, with C/O back pain. Pt up in the day room for his breakfast. After breakfast sit/stand supervision X 1, up on wheeled walker standing balance supervision X 1. Gait 100' X 1, with W/W CG X 1, no LOB and said thats all, said that his back was hurting. Pt back up in his chair, followed by act Ex to bilateral LE with cueing for each Ex of LAQ's, marching, ankle pumps X 20 reps each. I told Reddy that he needs to be doing 20 reps each every hour and he thought that was a lot. LELO JOHNS SHAREPOINT SOLUTIONS ARCHITECT.
--- NOTE | 2017-08-17 10:31 | NUR ---
'S OFFICE NOTIFIFED OF CONSULT FOR COUNSELING NEEDED.
--- NOTE | 2017-08-17 13:15 | NUR ---
Dr. Rm informed SW that Pt's discharge was placed on hold for today.
--- NOTE | 2017-08-17 13:16 | NUR ---
SW received return bertrand from [facility]. Pt missed last appointment. Appointment for 08-25 at 10am.
--- NOTE | 2017-08-17 13:16 | NUR ---
ANA tried to make appointment for Pt at [facility]. Per Kelli Pt was a no show for his appointment. Kelli unable to schedule new Pts at this time due to a provider being on maternity leave.
--- NOTE | 2017-08-17 13:16 | NUR ---
Socializing This is thursday with new patients. I like to talk with the patients to find out what they like to do, their likes and dislikes,kids, pets, etc... This patient did attend group this morning and seemed very bored with it. Patient kept yawning, sighing several times and did not participate
--- NOTE | 2017-08-17 13:18 | NUR ---
ANA informed Dr. pelaez that Pt can not be seen at [facility]. Dr. Pelaez wants Pt to be seen by Dr. Delgado for Counseling and Pt was ok with this. Dr. Pelaez [facility]. ANA will ask Pt if this is ok.
[2017-08-17 20:00] VITALS: BP 102/53
--- NOTE | 2017-08-17 23:19 | NUR ---
INTERACTIVE AND SUPPORTTIVE WITH PEERS DURING SNACK. REDIRECTED ON 2 ISSUES DURING THIS TIME. 1. ASKED IF HE COULD GET AHOLD OF PHARMACY SINCE THEY HADN'T YET SENT HIS INJECTION. EXPLAINED THAT A REQUEST WAS SENT. STATE "OH MY REQUEST WILL BE NICE IT WILL JUST BE AFTER I SHOT THE DOOR OPEN." 2. AFTER GIVING HIM HIS TORADOL SHOT HE SAID IF "THE NEW LADY GETS COLD TELL HER I HAVE WARM BLANKETS AND YOU KNOW ( HE HELD HIS ARMS OUT IF TO HUG)" REDIRECTED HIM THAT IT WAS NICE BUT INAPPROPRIATE IN THIS SITUATION. WILL MONITOR
--- NOTE | 2017-08-18 03:29 | NUR ---
24 HR chart check completed.
--- NOTE | 2017-08-18 03:55 | NUR ---
B: ANXIETY I: THERAPEUTIC COMMUNICATION, 1:1 R: FEELING BETTER AFTER TORADOL P: MEDICATION COMPLIANCE, ENCOURAGE GROUP ACTIVITIES, IDENTIFY COPING SKILLS FOR INCREASED ANXIETY
--- NOTE | 2017-08-18 06:14 | NUR ---
24 HR chart check completed. SLEPT WELL PAST 2200PM
[2017-08-18 07:35] LABS: BASO % 0.7 % (0.0-1.0); EOS # 0.2 10*3/uL (0.0-0.4); EOS % 4.2 % (1.0-4.0); HEMATOCRIT 39.9 % (42.0-52.0); HEMOGLOBIN 13.1 g/dl (14.0-18.0); LYMPH # 2.1 10*3/uL (1.3-4.4); LYMPH % 35.8 % (27.0-41.0); MEAN CELL VOLUME 89.5 fl (80.0-94.0); MEAN CORPUSCULAR HGB 29.4 pg (27.0-31.0); MEAN CORPUSCULAR HGB CONC 32.8 g/dl (33.0-37.0); MONO # 0.6 10*3/uL (0.1-1.0); MONO % 10.1 % (3.0-9.0); NEUT # 2.7 10*3/uL (2.3-7.9); NEUT % 47.1 % (47.0-73.0); PLATELET COUNT AUTOMATED 222 10*3/uL (130-400); RED BLOOD COUNT 4.46 10*6/uL (4.50-5.90); RED CELL DISTRI WIDTH 13.7 % (0-14.5); WHITE BLOOD COUNT 5.7 10*3/uL (4.8-10.8)
--- NOTE | 2017-08-18 07:56 | NUR ---
PAUL This is a very social game which gets everyone talking and laughing and thinking. Patient did attend group as well as participate. Patient again seemed "bored" with group and irritated. Patient rarely socialized with others.
[2017-08-18 08:01] LABS: BUN 23 mg/dl (7-24); CHLORIDE 104 mmol/L (98-107); CREATININE 1.35 mg/dL (0.70-1.30); POTASSIUM 5.1 mmol/L (3.5-5.1); SODIUM 138 mmol/L (136-145)
[2017-08-18 08:48] VITALS: BP 105/60
--- NOTE | 2017-08-18 09:31 | NUR ---
PATIENT ATE 100% OF BREAKFAST THIS MORNING. MEDICATION COMPLIANT WITH AM MEDS WITHOUT DIFFICULTY. ALERT AND ORIENTED X4. PLEASANT, COOPERATIVE, AND APPROPRIATE.
--- NOTE | 2017-08-18 10:24 | NUR ---
PHYSICAL THERAPY Mr Dimas was seen this AM 1:1 for her physical therapy session. Pt transfer supine/sit, sitting balance CG X 1, with C/O of back pain and bilateral legs and said more so today? Sit/stand and standing balance with wheeled walker MIN A X 1. Slow gait this morning i did not say a thing about his gait speed, just glad that he was up ambulating. Gait total 155' X 1, with W/W cueing for gait safety and walker. I dont know if he was really having that much pain. Pt up in the day room now. Followed by act Ex to bilateral LE of LAQ's, marching and ankle pumps working to Pt's tolerance and just tried to encourage Reddy. LELO JOHNS FLAP LINING BINDER.
--- NOTE | 2017-08-18 11:27 | NUR ---
MADE AWARE LISINOPRIL WAS HELD THIS AM FOR BP 105/60. NNO RECEIVED.
--- NOTE | 2017-08-18 15:47 | NUR ---
Patient is alert and oriented x4, able to make needs and wants known to staff. Pleasant and cooperative this shift. Denies any SI/Hi. Denies any delusions or hallucinations and none are noted. Mood is euthymic with appropriate affect. Positive interactions with peers noted during group therapies this shift. Has been attending and participating in group therapy. Calm and purposeful in conversations with staff. Good hygiene with appropriate dress. Medication compliant without difficulty throughout the day. No s/s of anxiety noted this shift. Has not reported any pain to nursing this shift. Educated about increase in dosages of medications this shift, patient verbalized understanding. Fall precautions maintained per policy. Appetite good for meals. Taking fluids well. Ambulates independently with steady gait this shift. Continent of B&B with bathroom privileges. Respirations easy and even. Will continue to encourage patient to attend group therapy and continue treatment per orders. No acute distress noted. See [facility] flowsheet for specific monitoring.
--- NOTE | 2017-08-18 16:19 | NUR ---
DR. COSME AND DR. WRIGHT ON UNIT TO SEE PT AT THIS TIME.
--- NOTE | 2017-08-18 16:25 | NUR ---
Exercise/Trivia-Morning group RAFFI afternoon group Morning group of exercise helps patients stay active and joints mobile,trivia helps with socialization,thinking,focusing qand self esteem Patient did attend group this morning and participated in exercise and trivia. Patient is very good at trivia,also encouraging to other patients. Patient has a tendency to try and take over. If i am speeking to a patient about interupting this patient will jump in and start to tell the patient he needs to calm down and listen. Patient has to be reminded he a patient and not the AT. Patient did attend afternoon group and was rather quiet and withdrawn. Patient rarely spoke or interacted with other patients
--- NOTE | 2017-08-18 17:53 | NUR ---
PATIENT TRIGGERED FOR FLU VACCINE. NOTIFIED AND STATES PT IN NOT ELIGIBLE FOR FLU VACCINE AT THIS TIME D/T STEROID INJECTIONS. PATIENT MADE AWARE.
--- NOTE | 2017-08-18 18:19 | NUR ---
ANA received call from Cousin Alicia. ANA informed that Dr Trinidad was discharging Pt on . Alicia has a stress test in the morning. Alicia agreed to pick up operator Pt at 3pm to go to his Mother's Home.
--- NOTE | 2017-08-18 18:20 | NUR ---
SW received call from Alicia mead informing SW that Pt's Mother wants him to go to a Homeless longterm. His Mother can not deal with his manipulative behavior. Alicia willing to take Pt his belongings where ever he ends up.
--- NOTE | 2017-08-18 19:45 | NUR ---
PATIENT IVF ON HOLD WHILE PATIENT BEING SHOWERED DUE TO INCONTINENCE EPISODE OF BOWELS.
--- NOTE | 2017-08-18 20:40 | NUR ---
PATIENT IN DINING AREA WITH COMPLAINT OF WANTING PHARMACY WRITTEN UP DUE HIS TORADOL TAKING TIME TO GET TO HIM FROM PHARMACY YESTERDAY. THIS NURSE REDIRECTED PATIENT AND PATIENT ABLE TO CALM DOWN AND PATIENT STATING THAT HE MEDICATION DID HELP HIM YESTERDAY
[2017-08-18 20:54] VITALS: BP 136/66
--- NOTE | 2017-08-18 20:55 | NUR ---
THIS NURSE WAS TOLD BY STAFF THAT PATIENT WAS TALKING INAPPROPRIATELY WITH ANOTHER PATIENT. THIS NURSE EXPLAINED TO PATIENT THAT HIS INAPPROPRIATE CONVERSATIONS HAD TO STOP. PATIENT DENIES ASKING ANOTHER PATIENT TO GO TO HIS ROOM WITH HIM
--- NOTE | 2017-08-18 21:25 | NUR ---
PATIENT INTRUSIVE WHILE THIS NURSE ATTEMPTING TO HELP HIS ROOMMATE WITH INCONTINENCE OF URINE EPISODE IN THE BATHROOM. PATIENT REDIRECTED TO FOCUS ON HIS OWN CARE. PATIENT RESTING IN BED AT THIS TIME
--- NOTE | 2017-08-19 02:01 | NUR ---
24 HR chart check completed.
--- NOTE | 2017-08-19 05:17 | NUR ---
B: ANXIETY I: THERAPEUTIC COMMUNICATION R: I HOPE THIS IV ISN'T GOING TO RUN FOR VERY LONG. THE DOCTOR SAID THEY SEEN SOMETHING IN MY LAB WORK FOR MY KIDNEYS P: IDENIFY COPING SKILLS TO HELP WITH ANXIETY, MEDICATION COMPLIANCE, PARTICIPATE IN GROUP ACTIVITIES
--- NOTE | 2017-08-19 05:44 | NUR ---
Q 15 MINUTE CHECKS MAINTAINED. SLEPT > 8 HOURS THROUGHOUT SHIFT
[2017-08-19 08:15] VITALS: BP 148/78
--- NOTE | 2017-08-19 09:22 | NUR ---
PHYSICAL THERAPY Pt seen this AM supine in bed sleeping, will stop back later. LELO JOHNS NAILER OPERATOR.
--- NOTE | 2017-08-19 09:23 | NUR ---
PHYSICAL THERAPY Back this AM to see Reddy, Pt was up in the day room after his breakfast. Reddy said that he was being D/C today and did not want to take his therapy. LELO JOHNS EDGE BANDING OFF BEARER.
[2017-08-19] MEDS ORDERED: DULOXETINE HCL60 MG PO (09:52)
[2017-08-19] MEDS ORDERED: GABAPENTIN800 MG PO (09:52)
[2017-08-19] MEDS ORDERED: TIZANIDINE HCL4 MG PO (09:52)
[2017-08-19] MEDS ORDERED: QUETIAPINE FUM300 M1 PO (09:52)
--- NOTE | 2017-08-19 15:20 | NUR ---
PT ALERT TO PERSON,PLACE, TIME AND SITUATION. PT MED COMPLIANT WITHOUT DIFFICULTY, MED EDUCATION GIVEN. PT MOOD IS STABLE. NO HALLUCINATIONS OR DELUSIONS NOTED. PT DENIES ANY HOMICIDAL/SUICIDAL THOUGHTS. PT CAN BE INTRUSIVE/DISRUPTIVE TO OTHERS, INTERRUPTING CONVERSATOINS. IV REMOVED FROM RIGHT ARM, PRESSURE HELD, DRESSING APPLIED. PT RECEIVED FLU SHOT TO LEFT DELTOID. PT AMBULATORY THROUGHOUT UNIT, WHEELED WALKER USED AT TIMES, GAIT OCCASIONALLY UNSTEADY, FALL PRECAUTIONS IN PLACE PER POLICY. PT CONTINENT OF BOWEL AND BLADDER. PLAN IS TO CONTINUE TO PROVIDE MED EDUCATION, ENCOURGAE PT TO PARTICIPATE IN GROUPS/ACTIVITIES.
--- NOTE | 2017-08-19 16:43 | NUR ---
NOTIFIFED OF PT DISCHARGE FOR 6PM. NO FURTHER ORDERS AST THIS TIME.
--- NOTE | 2017-08-19 19:08 | NUR ---
PT DISCHARGED TO [facility]. DISCHARGE PAPERWORK AND MEDICATIONS FILLED IN OUR PHARMACY SENT WITH PATIENT.
--- NOTE | 2017-08-19 19:43 | NUR ---
ANA SPOKE WITH MYRA WILBURN FROM [employer] THAT WORKS AT NURSING HOME. PT NEEDS TO HAVE A JOB IN ORDER TO GET ASSISTANCE WITH HOUSING. SW WILL REMIND PT OF THE CRITERIA OF THE PROGRAM. ANA INFORMED MYRA THAT PT WAS GOING TO [facility] IN [place].
--- NOTE | 2017-08-19 19:46 | NUR ---
SW SPOKE WITH PT MOTHER WHO DECIDED THAT PT WAS NOT ABLE TO STAY WITH HER DUE TO HER FAILNG HEALTH AND NOT BE ABLE TO ASSIST PT.
--- NOTE | 2017-08-19 20:31 | NUR ---
ANA CALLED [facility]OMELESS ASSIST[facility] TO SEE IF PT WOULD QUALIFY FOR ASSISTANCE. Payal WILL ASK HER TRAVEL SERVICE CONSULTANT BUT SHE WOULD NEED TO SEE IF ROOMS COULD BE MOBVED TO ACCOMODATE A MALE. Payal DOES NOT THINK pT WILL QUALIFY DUE TO AN OPEN COURT CASE. Payal WILL CHECK BACK ON thursday DUE TO HER BEING IN WHEELING FOR A MEETING.
--- NOTE | 2017-08-19 20:34 | NUR ---
ANA CALLED [facility]. [facility] WILL ACCPET PT IF HE CAN CLIMB 2 FLIGHT OF STAIRS AND GET ON TOP BUNK OR SLEEP ON FLOOR WITH MAT. sw WILL CHECK WITH NURSING ABOUT THE STAIRS AND SLEEPING ON FLOOR.
--- NOTE | 2017-08-19 20:35 | NUR ---
SW CHECKED WITH NURS. NURSE CALLED PT [facility] . PT FEELS THAT PT HAS GOTTEN WEAKER AND WOULD NOT BE SAFE ON THE STAIRS.
--- NOTE | 2017-08-19 20:36 | NUR ---
SW CALLED [facility] IN [place]. MALES SLEEP ON FIRST FLOOR AND MALE BED IS AVAILBLE. PT NEEDS TO BE AT FACILITY BEFORE 10PM.
--- NOTE | 2017-08-19 20:37 | NUR ---
ANA SCHEDULED TAXI FOR 7PM WHEN MEDS WILLBE AVAILBLE FROM THE PHARMACY.
--- NOTE | 2017-08-19 20:38 | NUR ---
ANA LEFT FOR SCREENER AT THE cOUNSELING cENTER TO SCHEDULE APPOITNMENT FOR MED FOLLOW UP. ANA CAN NOT SCHEDULE dR. JEAN APPOITNMENT UNTIL thE cOUNSELING cENTER APPOINTMENT IS MADE.
--- NOTE | 2017-08-19 20:41 | NUR ---
SW LEFT FOR COUSIN Radha INFORMING HER OF WHERE PT WAS BEING DISCHARGED TO.
--- NOTE | 2017-08-19 20:42 | NUR ---
SW AND NURSE REVIEWED DISCHARGE PAPERWORK WITH PT. COPY OF PAPERWORK GIVEN TO PT. PT WAS DISCHARGED TO THE [facility] IN [place], [place]. SW WILL TEXT OR CALL PT WHEN THE [facility] CALLS BACK AND DR. JEAN APPINTMENT SCHEDULED.
--- NOTE | 2017-08-20 07:48 | NUR ---
PHYSICAL THERAPY CO-SIGN I approve of the Phyical Therapy notes written above. ALEXA SMITH PT
== END 2017-08-19 19:08 | DRG 885 ==
LOC: 3N 14:26
PROVIDERS: Internal Medicine; ADMIT Psychiatry & Neurology Psychiatry
DX: F33.3 Major depressive disorder, recurrent, severe with psychotic symptoms (principal); E11.622 Type 2 diabetes mellitus with other skin ulcer; E11.65 Type 2 diabetes mellitus with hyperglycemia; I10 Essential (primary) hypertension; L97.519 Non-pressure chronic ulcer of other part of right foot with unspecified severity; F41.9 Anxiety disorder, unspecified; K21.9 Gastro-esophageal reflux disease without esophagitis; E78.5 Hyperlipidemia, unspecified; M54.9 Dorsalgia, unspecified; E55.9 Vitamin D deficiency, unspecified; J30.2 Other seasonal allergic rhinitis; E78.00 Pure hypercholesterolemia, unspecified; Z88.2 Allergy status to sulfonamides; Z88.1 Allergy status to other antibiotic agents; Z79.899 Other long term (current) drug therapy; Z83.3 Family history of diabetes mellitus; Z82.49 Family history of ischemic heart disease and other diseases of the circulatory system